=== PATIENT | male | born 1975 | race Hispanic/Latino ===

== ENCOUNTER 2021-06-21 09:56 | Emergency (ER) | payer MEDICARE ==
[2021-06-21 10:49] VITALS: BP 122/69
--- NOTE | 2021-06-21 10:50 | Emergency Department Report ---
ED Dysuria HPI - HPI Chief Complaint: Urogenital-Male Stated Complaint: URINARY INFECTION Time Seen by Provider: 06/21/21 10:49 Duration: 3 Days Location of Discomfort: Suprapubic Severity: Mild Symptoms: Dysuria: Yes, Frequency: No, Suprapubic Pain: No, Flank Pain: No, Fever: No, Hematuria: No, Abdominal Pain: No, Previous UTI's: No Other History: 45 yo comes to ER co dysuria and leaking of urine. Denies discharge. Denies testicular pain. Denies abd pain or back pain. Denies hematuria. No fever or chills. VSS. NAD ED Review of Systems ROS: Stated complaint: URINARY INFECTION Other details as noted in HPI Comment: All other systems reviewed and negative ED Past Medical Hx - Past Medical History Previous Medical History?: Yes Hx Psychiatric Treatment: Yes - Surgical History Past Surgical History?: No - Family History Family history: no significant - Social History Smoking Status: Current Every Day Smoker Substance Use Type: None Dysuria Exam - Exam General: Vital signs noted. No distress. Alert and acting appropriately. Exam: Yes Moist Mucous Membranes, No CVA Tenderness, No Abdominal Tenderness, No Rigidity or Guarding ED Course Vital Signs 06/21/21 10:47 Temperature 98.9 F Pulse Rate 78 Respiratory 16 Rate Blood Pressure 122/69 [Left] O2 Sat by Pulse 97 Oximetry ED Medical Decision Making - Medical Decision Making Vital Signs 06/21/21 10:47 Temperature 98.9 F Pulse Rate 78 Respiratory 16 Rate Blood Pressure 122/69 [Left] O2 Sat by Pulse 97 Oximetry Labs 06/21/21 11:24 Urine Color Colorless Urine Turbidity Clear Urine pH 6.0 Ur Specific Davy 1.001 L Urine Protein <15 mg/dl Urine Glucose (UA) Neg Urine Ketones Neg Urine Blood Neg Urine Nitrite Neg Urine Bilirubin Neg Urine Urobilinogen < 2.0 Ur Leukocyte Esterase Neg Urine WBC (Auto) < 1.0 Urine RBC (Auto) < 1.0 1330 left prior to getting ua results - Differential Diagnosis uti/sti/prostate disease Critical care attestation.: If time is entered above; I have spent that time in minutes in the direct care of this critically ill patient, excluding procedure time. ED Disposition Clinical Impression: Dysuria Disposition: 07 LEFT AWOL/ELOPED Is pt being admited?: No Does the pt Need Aspirin: No Condition: Stable Referrals: MANNY ALATORRE MD [Staff Physician] - 3-5 Days CARLA TAY MD [Staff Physician] - 3-5 Days Time of Disposition: 12:21
[2021-06-21 12:18] LABS: Bilirubin,Urine NEG (Negative); Blood,Urine NEG (Negative); Color,Urine Colorless (Yellow); Protein,Urine <15 mg/dL mg/dL (Negative); Urobilinogen,Urine < 2.0 mg/dL (<2.0)
[2021-06-21 12:31] LABS: RBC,Urine < 1.0 /HPF (0.0-6.0); WBC,Urine < 1.0 /HPF (0.0-6.0)
== END 2021-06-21 10:55 | disposition left against medical advice (07) ==
LOC: ED 09:56
DX: R30.0 Dysuria (principal); F17.200 Nicotine dependence, unspecified, uncomplicated
CPT/HCPCS: 81001; 99282

== ENCOUNTER 2021-06-25 10:06 | Emergency (ER) | payer MEDICARE ==
[2021-06-25 10:17] VITALS: BP 130/76
--- NOTE | 2021-06-25 10:30 | Emergency Department Report ---
<ES VALLES - Last Filed: 06/25/21 10:47> ED Male HPI - General Chief complaint: Urogenital-Male Stated complaint: URINE SMELL/BURNT SMELL Time Seen by Provider: 06/25/21 10:19 Source: patient Mode of arrival: Ambulatory Limitations: No Limitations - History of Present Illness Initial comments: Patient is a 45-year-old male presents emergency room with complaints of urinary symptoms that began a week ago. He has associated dysuria, urinary frequency, urine has an odor, "dribbling". Patient states he has had issues with urinary symptoms in the past and was previously on oxybutynin. He denies any fever, penile discharge, pain or swelling in the testicles, abdominal pain, nausea, vomiting, diarrhea, back pain. No past medical history. No allergies to medications. Patient states that he has no concerns for STDs and reports that he has not been sexually active in over a month, pt declines prophylactic STD tr eatment. - Related Data Previous Rx's Medication Instructions Recorded Last Taken Type Ciprofloxacin HCl [Ciprofloxacin 500 mg PO BID 7 Days #28 tablet 06/25/21 Unknown Rx TAB] Phenazopyridine [Pyridium] 100 mg PO TID 2 Days #6 tab 06/25/21 Unknown Rx Allergies Allergy/AdvReac Type Severity Reaction Status Date / Time No Known Allergies Allergy Verified 06/21/21 10:47 ED Review of Systems Comment: All other systems reviewed and negative ED Past Medical Hx - Past Medical History Previous Medical History?: Yes Hx Psychiatric Treatment: Yes - Surgical History Past Surgical History?: Yes - Social History Smoking Status: Current Every Day Smoker Substance Use Type: None - Medications Home Medications: Home Medications Medication Instructions Recorded Confirmed Last Taken Type Ciprofloxacin HCl [Ciprofloxacin 500 mg PO BID 7 Days #28 tablet 06/25/21 Unknown Rx TAB] Phenazopyridine [Pyridium] 100 mg PO TID 2 Days #6 tab 06/25/21 Unknown Rx ED Physical Exam - General Limitations: No Limitations General appearance: alert, in no apparent distress - Head Head exam: Present: atraumatic, normocephalic - Eye Eye exam: Present: normal appearance - ENT ENT exam: Present: mucous membranes moist - Respiratory Respiratory exam: Present: normal lung sounds bilaterally. Absent: respiratory distress, wheezes, rales, rhonchi, stridor, chest wall tenderness, accessory muscle use, decreased breath sounds, prolonged expiratory - Cardiovascular Cardiovascular Exam: Present: regular rate, normal rhythm, normal heart sounds. Absent: systolic murmur, diastolic murmur, rubs, gallop - GI/Abdominal GI/Abdominal exam: Present: soft, normal bowel sounds. Absent: distended, tenderness, guarding, rebound, rigid - exam: Present: other (pt deferred ) - Back Exam Back exam: Absent: CVA tenderness (R), CVA tenderness (L) - Neurological Exam Neurological exam: Present: alert, oriented X3 - Psychiatric Psychiatric exam: Present: normal affect, normal mood - Skin Skin exam: Present: warm, dry, intact ED Medical Decision Making - Medical Decision Making Patient is a 45-year-old male presents emergency room with complaints of urinary symptoms that began a week ago. He has associated dysuria, urinary frequency, urine has an odor, "dribbling". Patient states he has had issues with urinary symptoms in the past and was previously on oxybutynin. He denies any fever, penile discharge, pain or swelling in the testicles, abdominal pain, nausea, vomiting, diarrhea, back pain. No past medical history. No allergies to medications. Patient states that he has no concerns for STDs and reports that he has not been sexually active in over a month, pt declines prophylactic STD treatment. Vitals are normal. No abdominal tenderness or CVA tenderness on exam. Patient was evaluated in the emergency department on 06/21/2021 and had a UA performed at that time which was within normal limits, patient eloped prior to completion of his UA. Patient given prescription for Pyridium to help with urinary symptoms. Patient given prescription for ciprofloxacin to cover for prostatitis given that patient has had issues with urinary symptoms in the past. Patient will be referred to primary care and urology. Advised patient Please take medication as prescribed. Increase your fluid intake. Follow-up with a primary care doctor. Follow-up with urologist. Return to emergency room for any new or worsening symptoms. Medication may turn your urine orange, this is normal. ED Disposition Clinical Impression: Dysuria, Urinary frequency Disposition: HOME / SELF CARE / HOMELESS Is pt being admited?: No Does the pt Need Aspirin: No Condition: Stable Instructions: Urinary Frequency, Adult, Dysuria Additional Instructions: Please take medication as prescribed. Increase your fluid intake. Follow-up with a primary care doctor. Follow-up with urologist. Return to emergency room for any new or worsening symptoms. Medication may turn your urine orange, this is normal. Prescriptions: Ciprofloxacin HCl [Ciprofloxacin TAB] 500 mg PO BID 7 Days #28 tablet Phenazopyridine [Pyridium] 100 mg PO TID 2 Days #6 tab Referrals: CARLA TAY MD [Staff Physician] - 3-5 Days [facility] [Provider Group] - 3-5 Days MELANY MARIE MD [Staff Physician] - 3-5 Days NEIL MENDOZA MD [Staff Physician] - 3-5 Days (urologist) Time of Disposition: 10:32 Print Language: ESTONIAN <ELVIS ORTA - Last Filed: 06/25/21 16:12> ED Review of Systems ROS: Stated complaint: URINE SMELL/BURNT SMELL Other details as noted in HPI ED Course Vital Signs 06/25/21 10:16 Temperature 97.6 F Pulse Rate 87 Respiratory 19 Rate Blood Pressure 130/76 O2 Sat by Pulse 96 Oximetry Critical care attestation.: If time is entered above; I have spent that time in minutes in the direct care of this critically ill patient, excluding procedure time. ED Disposition Is pt being admited?: No Does the pt Need Aspirin: No
== END 2021-06-25 11:10 | disposition home or self-care (01) ==
LOC: ED 10:06
DX: R30.0 Dysuria (principal); R35.0 Frequency of micturition; F17.200 Nicotine dependence, unspecified, uncomplicated
CPT/HCPCS: 99281